=== PATIENT | male | born 1985 | race Caucasian/White ===

== ENCOUNTER 2019-08-14 07:51 | Outpatient (CLI) | payer OTHER ==
--- NOTE | 2019-08-14 08:24 | RAD ---
RADIOGRAPH LEFT KNEE 4VIEWS: DATE: 08/14/2019 HISTORY: 34-year-old male with traumatic knee pain due to skiing injury FINDINGS: There is no evidence of fracture or dislocation. There is no evidence of periostitis, permeative lesi on, osteolytic lesion, or osteoblastic lesion. The joint spaces are maintained without erosions or significant osteophytes. No large joint effusion. IMPRESSION: Negative
== END 2019-08-14 07:52 | disposition home or self-care (01) ==
LOC: SCSRAD 07:51
PROVIDERS: ATTEND Family Medicine
DX: M25.562 Pain in left knee (principal)
CPT/HCPCS: 36415; 80053; 80061; 81001; 85025

== ENCOUNTER 2019-08-20 10:29 | Outpatient (CLI) | payer OTHER ==
--- NOTE | 2019-08-20 12:28 | MRI ---
MRI LEFT KNEE WITHOUT CONTRAST: HISTORY: M25.562, pain in left knee. COMPARISON: Radiograph 08/14/2019. FINDINGS: MEDIAL MENISCUS: Healing longitudinal tear posterior horn medial meniscus with medial meniscal capsular separation. LATERAL MENISCUS: There is mild abnormal horizontal signal within the posterior horn of the lateral meniscus near the p osterior superior meniscal popliteal vesical which may reflect an old tear. EXTENSOR MECHANISM: The quadriceps tendon, patella, and patellar tendon are intact. CARTILAGE: PATELLOFEMORAL COMPARTMENT: MEDIAL COMPARTMENT: Intact. LATERAL COMPARTMENT: Intact. Mild chondral fraying in the central weightbearing surface. There is a healing distal ACL tear near the footprint. PCL is intact. MCL is intact. LCL is intact . The popliteus tendon is intact. SOFT TISSUES: There is a popliteal cyst which is small at the ankle joint, although it has a cephalad extension wit h multiple septations. It measures up to 3.5 cm in AP dimension with a transverse dimension of 1.7 c m with a small neck to the joint. MUSCLES: The muscle signal and bulk is normal. BONES: Faint medullary edema of the left lateral condylar sulcus and submeniscal lateral tibial plateau. IMPRESSION: 1. Evidence of a healing distal anterior cruciate ligament tear near the tibial footprint. 2. Healing ramp lesion posterior horn medial meniscus. 3. Healing posterior superior meniscal popliteal fascial injury of the lateral meniscus. 4. Healing medullary contusions from pivot shift. 5. Mild chondral fraying of the lateral tibial plateau. 6. Cephalad extension of a multiseptated popliteal cyst. POS: HOME
== END 2019-08-20 10:30 | disposition home or self-care (01) ==
LOC: BICMRI 10:29
PROVIDERS: ATTEND Family Medicine
DX: M25.562 Pain in left knee (principal); S83.512D Sprain of anterior cruciate ligament of left knee, subsequent encounter; S83.282D Other tear of lateral meniscus, current injury, left knee, subsequent encounter; M25.862 Other specified joint disorders, left knee; M71.22 Synovial cyst of popliteal space [Baker], left knee; S80.02XD Contusion of left knee, subsequent encounter